=== PATIENT | male | born 1965 | race Caucasian/White ===

== ENCOUNTER 2017-09-22 12:10 | Emergency (ER) | payer OTHER ==
[2017-09-22 13:20] VITALS: PULSE 97; O2SAT 98
[2017-09-22] MEDS ORDERED: XYLOCAINE 1% HCL 20 ML MDV ONE (13:23)
[2017-09-22] MEDS: XYLOCAINE 1% HCL 20 ML MDV IJ ONE (13:34)
--- NOTE | 2017-09-22 13:39 | XRAY ---
Indication: Fourth finger injury. Comparison: None 3 views of the right hand demonstrates tiny posterior 4th DIP superficial radiopacity felt to be external. No other bony, articular, or soft tissue abnormalities.
--- NOTE | 2017-09-22 14:26 | ERPHSYRPT ---
- History of Present Illness Time Seen by Provider: 09/22/17 13:11 Source: patient Patient Subjective Stated Complaint: Pt states "I got my finger stuck in a car spring. It was stuck for about 45 minutes." Triage Nursing Assessment: Pt alert and oriented X 3, skin pwd. Pt ambulates with an upright steady gait, able to speak in clear full sentences. PT has a small laceration to rigth lateral hand, bleeding controlled, small laceration to right ring finger, sensation decreaed on tip of right ring finger. Physician History: CC: right hand injury Hx: 52 y/o patient works at [employer]. He got the right hand caught in a suspension spring. He had trouble getting it out. He called for a coffee break. His boss was helping him. He thought about it for a while. They called the fire dept. He finally got it out after about 45 minutes. Came to ER with a cut hand. Tetanus up to date. No other injuries. Occurred: just prior to arrival Extremities Pain Location: hand: right Allergies/Adverse Reactions: No Known Drug Allergies Allergy (Unverified 09/22/17 13:05) Home Medications: No Reportable Medications [No Reported Medications] 09/22/17 [History] Hx Tetanus, Diphtheria Vaccination/Date Given: Yes (3 weeks ago) Hx Influenza Vaccination/Date Given: Yes Hx Pneumococcal Vaccination/Date Given: No Immunizations Up to Date: Yes - Review of Systems Constitutional: No Symptoms Musculoskeletal: Injury (right hand), No Back Pain, No Neck Pain Skin: No Rash Neurological: No Focal Weakness, No Headache, No Parasthesia - Past Medical History Pertinent Past Medical History: No - Past Surgical History Past Surgical History: Yes Other Surgical History: tonsils - Social History Smoking Status: Current every day smoker How long have you smoked: years Exposure to second hand smoke: Yes Drug Use: none Patient Lives Alone: No - Nursing Vital Signs Nursing Vital Signs: Initial Vital Signs Temperature 97.9 F 09/22/17 12:59 Pulse Rate 102 H 09/22/17 12:59 Respiratory Rate 20 09/22/17 12:59 Blood Pressure 162/92 09/22/17 12:59 O2 Sat by Pulse Oximetry 9 L 09/22/17 12:59 Pain Scale Pain Intensity 0 - Physical Exam General Appearance: alert Eyes, Ears, Nose, Throat Exam: moist mucous membranes Neck Exam: supple Cardiovascular/Respiratory Exam: regular rate/rhythm Neuro/Tendon Exam: normal motor functions Mental Status Exam: alert, oriented x 3, cooperative Skin Exam: warm, dry SpO2: 98 Oxygen Delivery: Room Air Comments: Right hand has 4cm arcuate laceration palmar aspect proximal to 5th MCP. ROM intact. He hold fingers in unusual lie but it matches his nondominant uninjured left hand. He has decreased two point discrimination on both sides of the 4th finger. ROM intact. Wound numbnes with 1% plain lidocaine and irrigated with NS. No tendon injury or deep structure injury seen while placing digits thru ROM. He has a couple of other superficial scrapes to fingers. Procedures - Laceration/Wound Repair right hand Wound Location: Right, hand Wound Length (cm): 4 Wound's Depth, Shape: linear (arcuate shaped) Wound Explored: no foreign body noted Irrigated: Yes Hibiclens Prep: Yes Anesthesia: local, 1% Lidocaine Volume Anesthetic (ccs): 4 Wound Repaired With: sutures Suture Size/Type: 4-0, prolene Number of Sutures: 4 Sterile Dressing Applied?: Yes Progress: 09/22/17 14:27 Discussed decreased sensation in the 4th digit with pt and . He understands. Doubt this is related to the laceration. He will consider hand follow up with Dr Esparza. - Course Nursing assessment & vital signs reviewed: Yes - Radiology Exams right hand X-ray Interpretation: Teleradiologist Report (no fx) Ordered Tests: Active Orders 24 hr Category Date Time Status Prepare for Sutures STAT Care 09/22/17 13:19 Active Sutures STAT Care 09/22/17 13:19 Active Wound Care STAT Care 09/22/17 13:19 Active HAND (MINIMUM 3 VIEWS) Stat Exams 09/22/17 13:28 Completed Medication Summary Discontinued Medications Generic Name Dose Route Start Last Admin Trade Name Freq PRN Reason Stop Dose Admin Lidocaine HCl 5 ml 09/22/17 13:19 09/22/17 13:34 Xylocaine 1% Hcl 20 Ml Mdv IJ 09/22/17 13:20 5 ml STAT ONE Administration Lidocaine HCl Confirm 09/22/17 13:23 Xylocaine 1% Hcl 20 Ml Mdv Administered 09/22/17 13:24 Dose 5 ml .ROUTE .STK-MED ONE - Progress Counseled pt/family regarding: diagnosis, need for follow-up - Departure Time of Disposition: 14:28 Departure Disposition: Home Clinical Impression: Laceration of right hand Qualifiers: Encounter type: initial encounter Foreign body presence: without foreign body Qualified Code(s): S61.411A - Laceration without foreign body of right hand, initial encounter Condition: Stable Critical Care Time: No Referrals: JOSE ELIAS ESPARZA [COURTESY STAFF] - Instructions: Laceration Repair With Stitches (DC) Additional Instructions: LACERATION CARE 1. Do not use peroxide, merthiolate, alcohol, or betadine. 2. Keep wound clean and dry. 3. Change dressing if it becomes wet or soiled. 4. If you must work, wear protective covering. 5. You may return to the emergency department or see your family physician for suture removal. 6. See your family physician or return to the emergency department for any of the following signs or symptoms: A. Redness B. Swelling C. Discolored drainage D. Red streaks E. Elevated temperature F. Other signs of infection Suture removal in 10 days. Keep wound clean and dry. Call to see Dr Esparza in 1-2 days for recheck and to discuss the numb 4th finger.
[2017-09-22 14:39] VITALS: BP 146/90
== END 2017-09-22 14:45 | disposition home or self-care (01) ==
LOC: ED 12:10
PROC: 0HQFXZZ Repair Right Hand Skin, External Approach (ICD-10-PCS; principal; 2017-09-22)
DX: S61.411A Laceration without foreign body of right hand, initial encounter (principal); W23.0XXA Caught, crushed, jammed, or pinched between moving objects, initial encounter; Y93.89 Activity, other specified; Y92.810 Car as the place of occurrence of the external cause; Y99.8 Other external cause status; Z72.0 Tobacco use
CPT/HCPCS: 12002; 73130; 99283; 99284